=== PATIENT | female | born 1995 | race Caucasian/White ===

== ENCOUNTER 2023-06-20 13:43 | Emergency (ER) | payer OTHER ==
[~2023-06-20] VITALS: Ht 160 cm; Wt 69.4 kg
[2023-06-20 13:44] VITALS: TEMP 97.6
[2023-06-20] MEDS ORDERED: INDO50CA91 PO (15:21)
[2023-06-20 15:23] VITALS: BP 123/72; O2SAT 100
== END 2023-06-20 15:28 | disposition home or self-care (01) ==
LOC: M ED 13:43
DX: S93.601A Unspecified sprain of right foot, initial encounter (principal); W18.40XA Slipping, tripping and stumbling without falling, unspecified, initial encounter; Y99.0 Civilian activity done for income or pay; Z88.8 Allergy status to other drugs, medicaments and biological substances

== ENCOUNTER → 2024-01-02 | Outpatient (CLI) | payer OTHER ==
[~2024-01-02] MED LIST: INDO50CA91 PO
== END ==
LOC: M WUC 09:46
PROVIDERS: ATTEND Nurse Practitioner Family
DX: K59.00 Constipation, unspecified (principal)

== ENCOUNTER → 2024-05-28 | Outpatient (REF) | payer OTHER | LOC: M LAB REF 09:27 | PROVIDERS: ATTEND Physician Assistant | DX: R30.0 Dysuria (principal) ==

== ENCOUNTER → 2024-06-13 | Outpatient (REF) | payer OTHER | LOC: M LAB REF 17:30 | PROVIDERS: ATTEND Registered Nurse | DX: N39.0 Urinary tract infection, site not specified (principal) ==

== ENCOUNTER → 2024-08-03 | Outpatient (CLI) | payer OTHER ==
[2024-08-03 11:23] LABS: BASO % 0.7 % (0.0-1.0); EOS # 0.2 10^3/uL (0.0-0.5); EOS % 4.4 % (0.0-3.0); HEMATOCRIT 41.9 % (36.0-47.0); HEMOGLOBIN 13.4 g/dl (12.0-15.5); LYMPH # 1.8 10^3/uL (1.5-5.0); LYMPH % 32.8 % (24.0-44.0); MEAN CORPUSCULAR HEMOGLOBIN 28.5 pg (27.0-33.0); MEAN CORPUSCULAR VOLUME 89.1 fl (80.0-96.0); MONO # 0.4 10^3/uL (0.0-0.8); MONO % 6.6 % (2.0-8.0); NEUTROPHILS % 55.3 % (36.0-66.0); PLATELET COUNT, AUTOMATED 238 10^3/uL (150-450); WHITE BLOOD COUNT 5.5 10^3/uL (4.0-10.0)
[2024-08-03 11:29] LABS: ERYTHROCYTE SEDIMENTATION RATE 17 mm/hr (0-20)
[2024-08-03 11:42] LABS: HEMOGLOBIN A1c 5.6 % (4.0-6.0)
[2024-08-03 11:57] LABS: LIPASE 36 U/L (12-53)
[2024-08-03 11:58] LABS: C REACTIVE PROTEIN QUANTITATIV < 0.40 MG/DL (<1.0); IRON (FE) 64 UG/DL (50-170)
[2024-08-03 11:59] LABS: ALBUMIN 4.2 G/DL (3.2-5.2); ALKALINE PHOSPHATASE 96 U/L (46-116); ALT/SGPT 315 U/L (7.0-40); AMYLASE 90 U/L (30-118); AST/SGOT 191 U/L (<34); BILIRUBIN,TOTAL 0.5 MG/DL (0.3-1.2); BLOOD UREA NITROGEN 9 MG/DL (9-23); CARBON DIOXIDE LEVEL 28 MMOL/L (20-31); CHLORIDE LEVEL 106 MMOL/L (98-107); CREATININE FOR GFR 0.72 MG/DL (0.55-1.30); FREE T4 1.12 NG/DL (0.89-1.76); GLOMERULAR FILTRATION RATE > 60.0 (>60); GLUCOSE, FASTING 98 MG/DL (60-100); PERCENT SATURATION 18.9 % (13.2-45.0); POTASSIUM SERUM 4.2 MMOL/L (3.5-5.1); SODIUM LEVEL 137 MMOL/L (136-145); THYROID PEROXIDASE ANTIBODY 41 U/ML (<60.0); THYROID STIMULATING HORMONE 0.831 uIU/ML (0.55-4.78); TOTAL IRON BINDING CAPACITY 338 UG/DL (250-425); TOTAL PROTEIN 7.8 G/DL (5.7-8.2)
[2024-08-03 12:00] LABS: FERRITIN 148.4 NG/ML (7.3-270.7); VITAMIN B12 LEVEL 890 PG/ML (211-911)
[2024-08-03 12:01] LABS: FOLATE > 24.0 NG/ML (>5.4)
[2024-08-04 11:23] LABS: ANA SCREEN, IFA NEGATIVE (NEGATIVE)
[2024-08-04 13:17] LABS: EBV AB TO NUCLEAR ANTIGEN > 600.00 U/mL (<18.00); EBV VIRAL CAPSID AG IGM < 36.00 U/mL (<36.00)
== END ==
LOC: M LAB 09:34
PROVIDERS: ATTEND Nurse Practitioner Adult Health
DX: R53.83 Other fatigue (principal); R19.7 Diarrhea, unspecified

== ENCOUNTER → 2024-08-23 | Outpatient (CLI) | payer OTHER | LOC: M LAB 06:54 | PROVIDERS: ATTEND Nurse Practitioner Adult Health | DX: R53.83 Other fatigue (principal); R19.7 Diarrhea, unspecified ==

== ENCOUNTER → 2024-10-14 | Outpatient (CLI) | payer OTHER ==
[2024-10-14 13:19] LABS: FREE T3 3.2 PG/ML (2.3-4.2)
[2024-10-14 13:20] LABS: THYROGLOBULIN ANTIBODY < 15.0 U/ML (<60.0); THYROID PEROXIDASE ANTIBODY < 28.0 U/ML (<60.0); THYROID STIMULATING HORMONE 1.273 uIU/ML (0.55-4.78); TOTAL T3 156.3 NG/DL (60.0-181.0)
[2024-10-14 13:21] LABS: FREE T4 1.01 NG/DL (0.89-1.76)
[2024-10-18 16:23] LABS: ANA PATTERN Nuclear, Speckled (NEGATIVE); ANA SCREEN, IFA POSITIVE (NEGATIVE); ANA TITER 1:40 titer (<1:40)
[2024-10-18 16:47] LABS: T3 REVERSE 15 ng/dL (8-25)
== END ==
LOC: M RAD 11:17
PROVIDERS: ATTEND Nurse Practitioner Adult Health
DX: K76.0 Fatty (change of) liver, not elsewhere classified (principal); E04.9 Nontoxic goiter, unspecified

== ENCOUNTER → 2024-10-15 | Outpatient (CLI) | payer OTHER | LOC: M WHC 08:44 | PROVIDERS: ATTEND Family Medicine | DX: K76.0 Fatty (change of) liver, not elsewhere classified (principal); R16.0 Hepatomegaly, not elsewhere classified ==

== ENCOUNTER → 2024-10-20 | Outpatient (CLI) | payer OTHER ==
[2024-10-20 10:39] LABS: URIC ACID 4.3 MG/DL (3.1-7.8)
[2024-10-20 10:40] LABS: LIPASE 37 U/L (12-53)
[2024-10-20 10:42] LABS: ALBUMIN 3.8 G/DL (3.2-5.2); ALKALINE PHOSPHATASE 90 U/L (35-104); ALT/SGPT 231 U/L (7.0-40); AMYLASE 80 U/L (30-118); AST/SGOT 143 U/L (<34); BILIRUBIN,DIRECT 0.1 MG/DL (<0.4); BILIRUBIN,TOTAL 0.4 MG/DL (0.3-1.2); TOTAL PROTEIN 7.2 G/DL (5.7-8.2)
[2024-10-20 10:45] LABS: RHEUMATOID FACTOR QUANT 5.6 IU/ML (<14)
[2024-10-20 10:58] LABS: HEPATITIS B SURFACE ANTIGEN NEGATIVE (NEGATIVE)
[2024-10-20 11:20] LABS: HEPATITIS B CORE ANTIBODY IGM NEGATIVE (NEGATIVE)
[2024-10-22 16:48] LABS: ANA SCREEN, IFA NEGATIVE (NEGATIVE)
[2024-10-22 23:27] LABS: SSA SJOGRENS A <1.0 NEG AI (<1.0 NEG); SSB SJOGRENS B <1.0 NEG AI (<1.0 NEG)
[2024-10-23 00:03] LABS: CYCLIC CITRULLINATED PEPTIDE < 16 UNITS (<20)
== END ==
LOC: M LAB 09:15
PROVIDERS: ATTEND Family Medicine
DX: R94.5 Abnormal results of liver function studies (principal)

== ENCOUNTER → 2024-12-08 | Outpatient (CLI) | payer OTHER ==
[2024-12-08 12:24] LABS: INR 0.96; PROTHROMBIN TIME 13.1 SECONDS (12.5-14.5)
[2024-12-08 12:29] LABS: ALBUMIN 4.3 G/DL (3.2-5.2); ALKALINE PHOSPHATASE 90 U/L (35-104); ALT/SGPT 260 U/L (7.0-40); AST/SGOT 124 U/L (<34); BILIRUBIN,DIRECT 0.1 MG/DL (<0.4); BILIRUBIN,TOTAL 0.5 MG/DL (0.3-1.2); IRON (FE) 79 UG/DL (50-170); PERCENT SATURATION 23.8 % (13.2-45.0); TOTAL IRON BINDING CAPACITY 332 UG/DL (250-425); TOTAL PROTEIN 7.6 G/DL (5.7-8.2)
[2024-12-08 12:30] LABS: THYROID STIMULATING HORMONE 1.277 uIU/ML (0.55-4.78)
[2024-12-08 12:31] LABS: FERRITIN 107.6 NG/ML (7.3-270.7); HEPATITIS B SURFACE ANTIBODY POSITIVE (POSITIVE)
[2024-12-08 12:44] LABS: HEPATITIS B SURFACE ANTIGEN NEGATIVE (NEGATIVE)
[2024-12-08 13:05] LABS: HEPATITIS C VIRUS ABY INDEX < 0.02 INDEX (<0.8)
[2024-12-09 16:11] LABS: T P ELECTROPHORESIS SO 7.6 g/dL (6.1-8.1)
[2024-12-10 10:17] LABS: ALPHA 1 ANTITRYPSIN 156 mg/dL (83-199)
[2024-12-10 13:18] LABS: TISSUE TRANSGLUTAMINASE IgA < 1.0 U/mL (<15.0); TISSUE TRANSGLUTAMINASE IgG < 1.0 U/mL (<15.0)
[2024-12-10 16:23] LABS: ANA PATTERN Nuclear, Speckled (NEGATIVE); ANA SCREEN, IFA POSITIVE (NEGATIVE); ANA TITER 1:40 titer (<1:40)
[2024-12-10 18:01] LABS: ANTI-MITOCHONDRIAL ANTIBODY NEGATIVE (NEGATIVE)
[2024-12-11 15:13] LABS: HEPATITIS A IgG TOTAL REACTIVE (NON-REACTIVE)
[2024-12-11 23:48] LABS: ANTI-SMOOTH MUSCLE ANTIBODY < 20 U (<20); LIVER-KIDNEY MICROSOMAL ABY <= 20.0 U (<=20.0)
[2024-12-13 12:52] LABS: ALBUMIN SPEP 4.5 g/dL (3.8-4.8); ALPHA-1-GLOBULINS SO 0.3 g/dL (0.2-0.3); ALPHA-2-GLOBULINS SO 0.7 g/dL (0.5-0.9); BETA 2 GLOBULIN 0.5 g/dL (0.2-0.5); BETA-GLOBULIN SO 0.4 g/dL (0.4-0.6); GAMMA GLOBULINS SO 1.2 g/dL (0.8-1.7)
== END ==
LOC: M WUC 09:16
PROVIDERS: ATTEND Physician Assistant
DX: R74.01 Elevation of levels of liver transaminase levels (principal)

== ENCOUNTER → 2024-12-28 | Outpatient (REF) | payer OTHER | LOC: M LAB REF 17:06 | PROVIDERS: ATTEND Family Medicine | DX: R10.2 Pelvic and perineal pain (principal) ==

== ENCOUNTER → 2025-02-22 | Outpatient (CLI) | payer OTHER | LOC: M RAD 12:41 | PROVIDERS: ATTEND Family Medicine | DX: R10.2 Pelvic and perineal pain (principal) ==

== ENCOUNTER → 2025-02-28 | Outpatient (REF) | payer OTHER | LOC: M LAB REF 17:03 | PROVIDERS: ATTEND Student in an Organized Health Care Education/Training Program | DX: R30.0 Dysuria (principal) ==

== ENCOUNTER → 2025-03-28 | Outpatient (REF) | payer OTHER | LOC: M LAB REF 19:16 | PROVIDERS: ATTEND Student in an Organized Health Care Education/Training Program | DX: J02.9 Acute pharyngitis, unspecified (principal) ==